=== PATIENT | female | born 1955 | race Caucasian/White ===

== ENCOUNTER 2016-09-03 10:37 | Day surgery (SDC) | payer BC ==
[~2016-09-03] VITALS: Ht 175.3 cm; Wt 119.2 kg
[~2016-09-03 10:37] MED LIST: CREON1 CAP PO; HUMALOG100 U/ML SC; LANTUS100 U/ML; LISINOPRIL10 MG PO; OMEPRAZOLE DR20 MG PO; PERCOCET 325 MG1 TA2 PO; SIMVASTATIN10 MG PO; SYNTHROID0.15 MG PO; VITAMIN D50000 I2 PO
[2016-09-03 11:09] VITALS: BP 145/78; PULSE 69; TEMP 97.8
[2016-09-03] MEDS ORDERED: INSULIN R (N100 U/ML SQ ×2 (11:22→11:23)
[2016-09-03] MEDS ORDERED: NOVLOG SQ (11:23)
[2016-09-03] MEDS ORDERED: LEVEMIR SQ ×2 (11:25→11:26)
[2016-09-03] MEDS ORDERED: SYNTHROID0.137 MG PO (11:27)
[2016-09-03] MEDS ORDERED: K-DUR20 MEQ PO (11:28)
[2016-09-03] MEDS ORDERED: ZOCOR 20MG20 MG PO (11:29)
[2016-09-03] MEDS ORDERED: CREON 60000 U-11 ECC PO (11:29)
[2016-09-03] MEDS ORDERED: VITAMIN D1000 IU PO (11:31)
[2016-09-03] MEDS ORDERED: PRINZIDE 12.5 M1 TA1 PO (11:33)
[2016-09-03 12:40] VITALS: BP 110/69; PULSE 70; TEMP 97.1
[2016-09-03 12:55] VITALS: BP 107/78; PULSE 75
[2016-09-03 13:10] VITALS: BP 115/78; PULSE 76
== END 2016-09-03 13:10 | disposition home or self-care (01) ==
LOC: SDCO 10:37
DX: Z12.11 Encounter for screening for malignant neoplasm of colon (principal); K63.5 Polyp of colon; K57.30 Diverticulosis of large intestine without perforation or abscess without bleeding; Z86.010 Personal history of colon polyps; E03.9 Hypothyroidism, unspecified; E10.9 Type 1 diabetes mellitus without complications; Z85.038 Personal history of other malignant neoplasm of large intestine; K76.0 Fatty (change of) liver, not elsewhere classified; Z79.899 Other long term (current) drug therapy
CPT/HCPCS: OP; J2250; J3010; J7030

== ENCOUNTER → 2016-09-07 | Outpatient (CLI) | payer BC ==
[~2016-09-07] MED LIST changes: +CREON 60000 U-11 ECC PO; +INSULIN R (N100 U/ML SQ; +K-DUR20 MEQ PO; +LEVEMIR SQ; +NOVLOG SQ; +PRINZIDE 12.5 M1 TA1 PO; +SYNTHROID0.137 MG PO; +VITAMIN D1000 IU PO; +ZOCOR 20MG20 MG PO
== END ==
LOC: MC.RAD 08:40
DX: Z12.31 Encounter for screening mammogram for malignant neoplasm of breast (principal)

== ENCOUNTER → 2016-10-05 | Outpatient (CLI) | payer BC | LOC: SUN.DIA 04-21 10:21 | DX: E11.65 Type 2 diabetes mellitus with hyperglycemia (principal); Z79.4 Long term (current) use of insulin; Z68.42 Body mass index [BMI] 45.0-49.9, adult; Z71.3 Dietary counseling and surveillance; E78.5 Hyperlipidemia, unspecified; I10 Essential (primary) hypertension | CPT/HCPCS: G0108 ==

== ENCOUNTER → 2016-10-05 | Outpatient (CLI) | payer BC | LOC: COL.RAD 07:14 | PROVIDERS: Internal Medicine | DX: K86.1 Other chronic pancreatitis (principal) | CPT/HCPCS: Q9967 ==

== ENCOUNTER → 2016-11-02 | Outpatient (CLI) | payer BC | LOC: SUN.DIA 08:45 | DX: E11.65 Type 2 diabetes mellitus with hyperglycemia (principal); Z79.4 Long term (current) use of insulin; E66.9 Obesity, unspecified; Z68.41 Body mass index [BMI] 40.0-44.9, adult; Z71.3 Dietary counseling and surveillance; E78.5 Hyperlipidemia, unspecified; I10 Essential (primary) hypertension | CPT/HCPCS: G0108 ==

== ENCOUNTER → 2017-04-14 | Outpatient (CLI) | payer BC ==
[~2017-04-14] MED LIST changes: +ALEVE 220MG220 MG PO; +D3-5050000 IU PO; +HUMALOG100 U/ML SQ; +NEURONTIN100 MG/CAP PO; +SYNTHROID0.125 MG/T PO
== END ==
LOC: MC.RAD 07:30
DX: N61.0 Mastitis without abscess (principal)

== ENCOUNTER → 2018-01-03 | Outpatient (CLI) | payer BC ==
[~2018-01-03] MED LIST changes: -ALEVE 220MG220 MG PO; -D3-5050000 IU PO; -HUMALOG100 U/ML SQ; -NEURONTIN100 MG/CAP PO; -SYNTHROID0.125 MG/T PO
== END ==
LOC: MC.RAD 11:32
DX: Z12.31 Encounter for screening mammogram for malignant neoplasm of breast (principal)

== ENCOUNTER → 2018-12-26 | Outpatient (CLI) | payer BC | LOC: COL.RAD 09:34 | DX: K86.1 Other chronic pancreatitis (principal); N94.89 Other specified conditions associated with female genital organs and menstrual cycle; Z90.89 Acquired absence of other organs | CPT/HCPCS: Q9967 ==

== ENCOUNTER 2019-01-26 06:22 | Day surgery (SDC) | payer BC ==
[~2019-01-26] VITALS: Ht 175.3 cm; Wt 124.5 kg
[2019-01-26 07:32] VITALS: BP 131/94; PULSE 78; TEMP 97.5
[2019-01-26] MEDS ORDERED: ALEVE 220MG220 MG PO (07:44)
[2019-01-26] MEDS ORDERED: D3-5050000 IU PO (07:46)
[2019-01-26] MEDS ORDERED: NEURONTIN100 MG/CAP PO (07:46)
[2019-01-26] MEDS ORDERED: CREON 60000 U-11 ECC PO (07:47)
[2019-01-26] MEDS ORDERED: SYNTHROID0.125 MG/T PO (07:49)
[2019-01-26] MEDS ORDERED: HUMALOG100 U/ML SQ (07:50)
[2019-01-26 08:25] VITALS: BP 130/70; PULSE 82; TEMP 97
[2019-01-26 08:40] VITALS: BP 124/66; PULSE 77
[2019-01-26 08:55] VITALS: BP 121/76; PULSE 70
[2019-01-26 09:10] VITALS: BP 134/81; PULSE 68
--- NOTE | 2019-01-26 09:18 | NUR ---
Pt returned via cart to bay 2. Ambulated to recliner in bay with x2 staff present, unsteady gait at the time. VSS-see flowsheet. Pt refused a snack, given iced water. present in room. After Dr Acharya spoke with pt and spouse, pt voiced feeling ready to go. Discharge teaching completed, verbalized understanding. IV removed with catheter tip intact, cotton ball and coban applied for pressure to removal site. Pt requested to walk instead of use a wheelchair. Ambulated with pt to private vehicle for dc home with driving.
== END 2019-01-26 09:18 | disposition home or self-care (01) ==
LOC: SDCO 06:22
DX: K21.9 Gastro-esophageal reflux disease without esophagitis (principal); K29.30 Chronic superficial gastritis without bleeding; E10.9 Type 1 diabetes mellitus without complications; Z79.4 Long term (current) use of insulin; M19.90 Unspecified osteoarthritis, unspecified site; E03.9 Hypothyroidism, unspecified; E88.89 Other specified metabolic disorders; Z86.010 Personal history of colon polyps; Z83.79 Family history of other diseases of the digestive system; K86.89 Other specified diseases of pancreas
CPT/HCPCS: J2250; J3010; J7030

== ENCOUNTER → 2019-01-31 | Outpatient (CLI) | payer BC ==
[~2019-01-31] MED LIST changes: +ALEVE 220MG220 MG PO; +D3-5050000 IU PO; +HUMALOG100 U/ML SQ; +NEURONTIN100 MG/CAP PO; +SYNTHROID0.125 MG/T PO
== END ==
LOC: COL.RAD 09:55
DX: K86.89 Other specified diseases of pancreas (principal); E11.9 Type 2 diabetes mellitus without complications
CPT/HCPCS: A9537

== ENCOUNTER → 2019-03-28 | Outpatient (CLI) | payer BC | LOC: MC.RAD 01-25 16:15 | DX: Z12.31 Encounter for screening mammogram for malignant neoplasm of breast (principal) ==

== ENCOUNTER → 2019-05-08 | Outpatient (CLI) | payer BC | LOC: COL.RAD 07:00 | DX: K59.00 Constipation, unspecified (principal); R14.3 Flatulence; R12 Heartburn; R10.13 Epigastric pain | CPT/HCPCS: A9541 ==

== ENCOUNTER → 2019-05-22 | Outpatient (CLI) | payer BC | LOC: ZCOL.LAB 17:03 | DX: K61.1 Rectal abscess (principal) ==

== ENCOUNTER → 2020-07-18 | Outpatient (CLI) | payer MEDICARE, BC | LOC: MC.RAD 12:56 | DX: Z12.31 Encounter for screening mammogram for malignant neoplasm of breast (principal); Z98.82 Breast implant status; Z78.0 Asymptomatic menopausal state ==

== ENCOUNTER 2021-03-09 17:02 | Inpatient (IN) | payer MEDICARE, BC ==
[~2021-03-09] VITALS: Ht 175.3 cm; Wt 118.2 kg
[2021-03-09 18:00] LABS: BASO # 0.1 (0.0-0.2); BASO % 0.4 % (0.0-2.0); EOS # 0.1 (0.0-0.7); EOS % 0.6 % (0-4.0); GRAN # 8.5 (1.4-6.5); GRAN % 72.3 % (42.2-75.2); HEMATOCRIT 49.6 % (37.0-47.0); HEMOGLOBIN 15.4 g/dl (12.5-16.0); LYMPH # 2.4 (1.2-3.4); LYMPH % 20.5 % (20.0-51.0); MEAN CELL VOLUME 98 fl (80.0-100.0); MEAN CORPUSCULAR HEMOGLOBIN 30 pg (27.0-31.0); MEAN CORPUSCULAR HGB CONC 31 g/dl (33.0-37.0); MEAN PLATELET VOLUME 13.1 fl (7.4-10.4); MONO # 0.6 (0.1-0.6); MONO % 5.4 % (1.7-9.3); PLATELET COUNT 234 K/mm3 (130-400); RED BLOOD COUNT 5.07 M/mm3 (4.10-5.30)
[2021-03-09 18:07] LABS: BILIRUBIN,TOTAL 0.7 mg/dL (0.0-1.0); CALCIUM 8.9 mg/dL (8.4-10.2); CREATININE, serum 1.8 (0.52-1.25); TOTAL PROTEIN 6.5 gm/dL (6.4-8.2)
[2021-03-09 20:23] LABS: INR 1.2 (0.8-3.0); PROTHROMBIN TIME 12.8 SECONDS (9.7-12.8)
[2021-03-09 20:26] LABS: PARTIAL THROMBOPLASTIN TIME 31.6 SECONDS (26.0-37.0)
[2021-03-10] VITALS (165 sets, daily range): BP systolic 75–117; BP diastolic 51–73; PULSE 73–102; TEMP 97.4–98.3; O2SAT 70–100
[2021-03-10] MEDS ORDERED: PAMELOR50 MG PO (01:24)
[2021-03-10] MEDS ORDERED: ERGOCALCIFER50000 IU PO (01:25)
[2021-03-10] MEDS ORDERED: PRILOSEC 20MG20 MG PO (01:40)
[2021-03-10] MEDS ORDERED: NEURONTIN100 MG/CAP PO (02:29)
[2021-03-10] MEDS ORDERED: ULTRAM 50MG TAB50 MG PO (02:30)
--- NOTE | 2021-03-10 02:30 | NUR ---
Admitted to medical floor from ER- DX PE, on heparin drip at 21cc/hr {2100units/hr}, alert/orientedx3, states having pain to right shoulder at 4/10, will call [facility] CHENG for pain med orders- IV fluids of NS at 100cc/hr, Right arm in sling, pt denies SOB at this time, on Airvo 60L/68%, denies chest pain. Understands to call for assistance to get up- [facility] informed of troponin of 0.216
[2021-03-10] MEDS ORDERED: NOVOLOG 100U100 U/M1 SQ (02:38)
[2021-03-10 05:27] LABS: BASO % 0.3 % (0.0-2.0); EOS % 0.1 % (0-4.0); GRAN # 8.3 (1.4-6.5); HEMATOCRIT 44.4 % (37.0-47.0); HEMOGLOBIN 13.7 g/dl (12.5-16.0); LYMPH # 2.1 (1.2-3.4); LYMPH % 18.7 % (20.0-51.0); MEAN CELL VOLUME 98 fl (80.0-100.0); MEAN CORPUSCULAR HEMOGLOBIN 30 pg (27.0-31.0); MEAN CORPUSCULAR HGB CONC 31 g/dl (33.0-37.0); MEAN PLATELET VOLUME 13.1 fl (7.4-10.4); MONO # 0.7 (0.1-0.6); MONO % 6.3 % (1.7-9.3); PLATELET COUNT 177 K/mm3 (130-400); RED BLOOD COUNT 4.54 M/mm3 (4.10-5.30)
[2021-03-10 05:37] LABS: CREATININE, serum 1.79 (0.52-1.25); POTASSIUM 4.9 mmol/L (3.4-5.0)
--- NOTE | 2021-03-10 06:00 | NUR ---
Has been sleeping well for the past 2-3hrs,, States the Tramadol did help the right shoulder aching,, Iv fluids of NS continue at 100cc/hr, hep Xa result came back at >2.0,, heparin drip off at this time--will recheck hep XA in 2 hours per protocol. VSS. continues on Airvo 60L, 68%.
[2021-03-10 06:13] LABS: TROPONIN-I 0.206 ng/mL (0.000-0.035)
--- NOTE | 2021-03-10 08:22 | NUR ---
Assessment completed, alert/oriented, vital signs stable, denies pain, reports breathing is unchanged, she gets dypnic easily with exertion, lungs CTA/ diminished bases, requiring Airvo / supplemental O2 to keep sats >90%, no resp.difficulty noted at rest and she can speak in full sentences at this time, heart RRR/distal pulses are palpable, SR on tele, right shoulder dislocation with reduction in ER/ in sling immobilizer at this time and she denies discomfort, Vascular just arrived to perform ECHO and BLE doppler, no redness or tenerness in LE, she denies needs, will continue to monitor
--- NOTE | 2021-03-10 09:14 | NUR ---
hepXa is still >1.25, hold 2 more hours and recheck level at 1030
--- NOTE | 2021-03-10 10:40 | NUR ---
Initial visit; Patient thanked [employer] for offering prayer and God's blessings. [employer] will continue to look in on [place] who seemed comforted by [employer]'s visit.
--- NOTE | 2021-03-10 10:54 | NUR ---
HepXa 0.51, will restart and drecrease by 300 units/hr from previous rate, and will now run at 18 ml/hr, nect level check @ 1700
--- NOTE | 2021-03-10 11:00 | NUR ---
SW met with the patient to discuss discharge plan. The patient lives in [place] with her , Enzo (ph#[phone]). She reports independence with ADLs and has a cane, rollator, and toliet riser. She recently had knee surgery and states that she has been going to outpatient PT at [facility] 3 times a week. She went to her appointment yesterday and they decided to hold off on therapy for now, due to her increased SOB. She then had a fall at home and landed on her right shoulder. The patient's PCP is Dr. Demetrius Chavez and [facility] She reports no difficulties obtaining her meds. The patient does not have a DPOA-HC in EMR, but she states that she does have one completed and believes that the form is at home. She states that she designated her . The patient plans to return home with her upon discharge and resume outpatient PT at [facility]. PT/OT have been ordered. The patient is currently requiring 45 liters of oxygen, via high flow cannula. SW to continue to follow. Discharge plan: Tentatively home with and outpatient PT. Awaiting theray's recs*
--- NOTE | 2021-03-10 15:37 | NUR ---
patient transferring to ICU 5, I have called and given report on patient to VASILE Schrader, transfered patient by bed, in waiting room and I notified ICU staff of this
[2021-03-10] MEDS ORDERED: NOVLOG SQ (18:31)
[2021-03-10] MEDS ORDERED: LEVEMIR FLEX100 U/ML SQ (18:31)
[2021-03-10] MEDS ORDERED: TYLENOL 325MG325 MG PO (18:31)
--- NOTE | 2021-03-10 19:15 | NUR ---
Received report from VASILE Schrader.
--- NOTE | 2021-03-10 19:45 | NUR ---
Patient resting quietly in bed. Currently finishing supper. All vitals within normal limits. She is alert and oriented; denies any pain or discomfort. She is currently receiving 6L via nasal cannula, tolerating well. NS infusing at 100mL/hr to the LAC. Heparin is currently on standby; prior dosing of 1800 units/hr. Patient assisted to commode with one-person assist. Patient full weight-bearing and steady on her feet. No further needs noted at this time.
--- NOTE | 2021-03-10 20:45 | NUR ---
EMS arrives for transport to at 2019. Patient able to ambulate to stretcher with standby assistance; tolerated well. Patient departs ICU unit at 2038.
--- NOTE | 2021-03-10 20:51 | NUR ---
Report provided to receiving nurseThao.
== END 2021-03-10 20:39 | disposition critical access hospital (66) | DRG 175 ==
LOC: COL.ER 17:02 → MEDICAL 22:15 → ICU 22:15 → COL.ER 22:15 → ICU 03-10 14:38 → MEDICAL 03-10 14:38 → ICU 03-10 20:39
PROVIDERS: Emergency Medicine; Family Medicine; Student in an Organized Health Care Education/Training Program; ADMIT Internal Medicine
DX: I26.99 Other pulmonary embolism without acute cor pulmonale (principal); J96.01 Acute respiratory failure with hypoxia; I21.A1 Myocardial infarction type 2; N17.9 Acute kidney failure, unspecified; I82.4Z2 Acute embolism and thrombosis of unspecified deep veins of left distal lower extremity; K86.1 Other chronic pancreatitis; E87.6 Hypokalemia; Z20.822 Contact with and (suspected) exposure to COVID-19; I95.9 Hypotension, unspecified; E03.9 Hypothyroidism, unspecified; Z96.652 Presence of left artificial knee joint; E11.40 Type 2 diabetes mellitus with diabetic neuropathy, unspecified; K21.9 Gastro-esophageal reflux disease without esophagitis; E86.0 Dehydration; F32.9 Major depressive disorder, single episode, unspecified; K86.89 Other specified diseases of pancreas; Z79.4 Long term (current) use of insulin; Z90.710 Acquired absence of both cervix and uterus
CPT/HCPCS: 99223-AI; J1170; J1644; J1815; J2405; J2704; J3101; J3480; J7030; Q9966

== ENCOUNTER → 2021-03-23 | Outpatient (REF) ==
[~2021-03-23] MED LIST changes: +ERGOCALCIFER50000 IU PO; +LEVEMIR FLEX100 U/ML SQ; +NOVOLOG 100U100 U/M1 SQ; +PAMELOR50 MG PO; +PRILOSEC 20MG20 MG PO; +TYLENOL 325MG325 MG PO; +ULTRAM 50MG TAB50 MG PO
== END ==
LOC: ZLAB.STJ 12:38
DX: E11.42 Type 2 diabetes mellitus with diabetic polyneuropathy (principal)

== ENCOUNTER → 2021-04-03 | Outpatient (CLI) | payer MEDICARE, BC ==
[2021-04-03 15:25] LABS: CALCIUM 8.2 mg/dL (8.4-10.2); CREATININE, serum 0.99 (0.52-1.25)
[2021-04-03 15:26] LABS: POTASSIUM 2.9 mmol/L (3.4-5.0)
[2021-04-03 15:27] LABS: THYROID STIMULATING HORMONE 4.508 uIU/mL (0.465-4.680)
== END ==
LOC: ZLAB.STJ 13:38
PROVIDERS: Orthopaedic Surgery
DX: E03.9 Hypothyroidism, unspecified (principal); I26.99 Other pulmonary embolism without acute cor pulmonale

== ENCOUNTER → 2021-04-06 | Outpatient (CLI) | payer MEDICARE, BC ==
[2021-04-06 17:23] LABS: CALCIUM 8.3 mg/dL (8.4-10.2); CREATININE, serum 0.93 (0.52-1.25); POTASSIUM 3.3 mmol/L (3.4-5.0)
== END ==
LOC: ZLAB.STJ 15:46
PROVIDERS: Internal Medicine
DX: I26.99 Other pulmonary embolism without acute cor pulmonale (principal)

== ENCOUNTER → 2021-04-15 | Outpatient (CLI) | payer MEDICARE, BC | LOC: COL.VAS 13:24 | DX: I34.0 Nonrheumatic mitral (valve) insufficiency (principal); I51.7 Cardiomegaly ==

== ENCOUNTER → 2021-04-23 | Outpatient (CLI) | payer MEDICARE, BC | LOC: COL.VAS 11:57 | DX: I51.89 Other ill-defined heart diseases (principal); M79.89 Other specified soft tissue disorders ==

== ENCOUNTER → 2021-06-09 | Outpatient (CLI) | payer MEDICARE, BC | LOC: COL.RAD 05-29 10:30 | DX: J98.11 Atelectasis (principal) | CPT/HCPCS: Q9967 ==

== ENCOUNTER 2021-07-20 09:00 | Outpatient (RCR) | payer MEDICARE, BC | END 2021-07-21 | disposition home or self-care (01) | LOC: WSOT | DX: M75.101 Unspecified rotator cuff tear or rupture of right shoulder, not specified as traumatic (principal); M62.81 Muscle weakness (generalized); R26.81 Unsteadiness on feet; Z96.652 Presence of left artificial knee joint ==

== ENCOUNTER 2021-08-06 09:00 | Outpatient (RCR) | payer MEDICARE, BC | END 2021-08-07 | disposition home or self-care (01) | LOC: WSOT | DX: I26.99 Other pulmonary embolism without acute cor pulmonale (principal); M75.101 Unspecified rotator cuff tear or rupture of right shoulder, not specified as traumatic; Z96.652 Presence of left artificial knee joint ==

== ENCOUNTER 2021-10-01 09:00 | Outpatient (RCR) | payer MEDICARE, BC | END 2021-10-05 | disposition home or self-care (01) | LOC: WSOT | DX: M75.121 Complete rotator cuff tear or rupture of right shoulder, not specified as traumatic (principal); I26.99 Other pulmonary embolism without acute cor pulmonale; Z96.652 Presence of left artificial knee joint; S43.004D Unspecified dislocation of right shoulder joint, subsequent encounter; X58.XXXD Exposure to other specified factors, subsequent encounter ==

== ENCOUNTER 2021-12-03 09:30 | Outpatient (RCR) | payer MEDICARE, BC | END 2021-12-05 | disposition home or self-care (01) | LOC: WSOT | DX: S43.081D Other subluxation of right shoulder joint, subsequent encounter (principal); G54.0 Brachial plexus disorders; M62.511 Muscle wasting and atrophy, not elsewhere classified, right shoulder; M75.101 Unspecified rotator cuff tear or rupture of right shoulder, not specified as traumatic; Z96.651 Presence of right artificial knee joint; X58.XXXD Exposure to other specified factors, subsequent encounter ==

== ENCOUNTER → 2022-01-05 | Outpatient (RCR) | payer MEDICARE, BC | END | disposition home or self-care (01) | LOC: WSOT → PT.GENESIS 12-10 09:15 → WSOT 12-17 10:30 → PT.GENESIS 12-22 10:15 → WSOT 12-24 10:30 → PT.GENESIS 12-31 09:15 → WSOT 09:00 | DX: S43.084D Other dislocation of right shoulder joint, subsequent encounter (principal); M75.101 Unspecified rotator cuff tear or rupture of right shoulder, not specified as traumatic; I26.99 Other pulmonary embolism without acute cor pulmonale; Z96.652 Presence of left artificial knee joint; X58.XXXD Exposure to other specified factors, subsequent encounter ==

== ENCOUNTER → 2022-01-12 | Outpatient (CLI) | payer MEDICARE, BC | LOC: MC.RAD 14:00 | DX: Z12.31 Encounter for screening mammogram for malignant neoplasm of breast (principal) ==

== ENCOUNTER → 2022-02-04 | Outpatient (RCR) | payer MEDICARE, BC | END | disposition home or self-care (01) | LOC: PT.GENESIS → WSOT 01-07 08:52 → PT.GENESIS 01-07 08:52 → WSOT 01-07 09:00 → PT.GENESIS 01-14 09:15 → WSOT 01-28 10:30 → PT.GENESIS 02-02 11:00 | DX: J90 Pleural effusion, not elsewhere classified (principal); S43.004A Unspecified dislocation of right shoulder joint, initial encounter; M75.101 Unspecified rotator cuff tear or rupture of right shoulder, not specified as traumatic; Z96.642 Presence of left artificial hip joint ==

== ENCOUNTER 2022-03-04 09:00 | Outpatient (RCR) | payer MEDICARE, BC | END 2022-03-07 | disposition home or self-care (01) | LOC: PT.GENESIS | DX: S43.004D Unspecified dislocation of right shoulder joint, subsequent encounter (principal); M75.101 Unspecified rotator cuff tear or rupture of right shoulder, not specified as traumatic; M62.511 Muscle wasting and atrophy, not elsewhere classified, right shoulder; G54.0 Brachial plexus disorders; Z96.642 Presence of left artificial hip joint; Z96.652 Presence of left artificial knee joint; X58.XXXD Exposure to other specified factors, subsequent encounter ==

== ENCOUNTER → 2022-04-01 | Outpatient (CLI) | payer MEDICARE, BC ==
[2022-04-01 15:12] LABS: BASO # 0.1 K/mm3 (0.0-0.2); BASO % 0.9 % (0.0-2.0); EOS # 0.2 K/mm3 (0.0-0.7); EOS % 2.8 % (0.0-4.0); GRAN # 3.4 K/mm3 (1.4-6.5); GRAN % 63.8 % (42.2-75.2); HEMATOCRIT 43.3 % (37.0-47.0); HEMOGLOBIN 13.5 g/dl (12.5-16.0); LYMPH # 1.4 K/mm3 (1.2-3.4); LYMPH % 26.1 % (20.0-51.0); MEAN CELL VOLUME 93 fl (80.0-100.0); MEAN CORPUSCULAR HEMOGLOBIN 29 pg (27-31); MEAN CORPUSCULAR HGB CONC 31 g/dl (33.0-37.0); MEAN PLATELET VOLUME 11.9 fl (7.4-10.4); MONO # 0.3 K/mm3 (0.1-0.6); MONO % 6.2 % (1.7-9.3); PLATELET COUNT 219 K/mm3 (130-400); RED BLOOD COUNT 4.67 M/mm3 (4.10-5.30); REDCELL DISTRIBUTION WIDTH-CV 14.6 % (11.5-14.5)
[2022-04-01 15:30] LABS: ALANINE AMINOTRANSFERASE 12 U/L (0-55); ALBUMIN 2.7 gm/dL (3.4-4.8); ALKALINE PHOSPHATASE 130 U/L (40-150); ANION GAP 8 mmol/L (7-16); AST,SGOT 21 U/L (5-34); BILIRUBIN,TOTAL 0.7 mg/dL (0.2-1.2); BLOOD UREA NITROGEN 13 mg/dL (10-20); C-REACTIVE PROTEIN 0.29 mg/dL (0.00-0.50); CARBON DIOXIDE 28 mmol/L (23-31); CHLORIDE 106 mmol/L (98-107); CREATININE, serum 1.01 mg/dL (0.57-1.11); GLUCOSE 222 mg/dL (70-99); POTASSIUM 3.4 mmol/L (3.5-4.5); SODIUM 142 mmol/L (136-145); TOTAL PROTEIN 6.4 gm/dL (6.2-8.1)
[2022-04-01 15:38] LABS: ERYTHROCYTE SEDIMENTATION RATE 12 mm/hr (0-30)
[2022-04-01 15:49] LABS: THYROID STIMULATING HORMONE 6.032 uIU/mL (0.350-4.940)
[2022-04-01 15:55] LABS: TROPONIN-I < 0.010 ng/mL (0.00-0.033)
== END ==
LOC: COL.LAB 14:41 → COL.RAD 15:00 → COL.LAB 15:00
PROVIDERS: Internal Medicine
DX: R07.89 Other chest pain (principal); I26.99 Other pulmonary embolism without acute cor pulmonale
CPT/HCPCS: Q9967

== ENCOUNTER 2022-04-06 11:00 | Outpatient (RCR) | payer MEDICARE, BC | END 2022-04-07 | disposition home or self-care (01) | LOC: PT.GENESIS | DX: S43.081D Other subluxation of right shoulder joint, subsequent encounter (principal); G54.0 Brachial plexus disorders; M62.511 Muscle wasting and atrophy, not elsewhere classified, right shoulder ==

== ENCOUNTER 2022-06-03 11:15 | Outpatient (RCR) | payer MEDICARE, BC | END 2022-06-07 | disposition home or self-care (01) | LOC: PT.GENESIS | DX: S43.081D Other subluxation of right shoulder joint, subsequent encounter (principal); G54.0 Brachial plexus disorders; M62.511 Muscle wasting and atrophy, not elsewhere classified, right shoulder; X58.XXXD Exposure to other specified factors, subsequent encounter ==

== ENCOUNTER 2022-12-02 09:45 | Outpatient (RCR) | payer MEDICARE, BC | END 2022-12-05 | disposition home or self-care (01) | LOC: PT.GENESIS | DX: S43.081D Other subluxation of right shoulder joint, subsequent encounter (principal); G54.0 Brachial plexus disorders; M62.511 Muscle wasting and atrophy, not elsewhere classified, right shoulder; I26.99 Other pulmonary embolism without acute cor pulmonale; M75.101 Unspecified rotator cuff tear or rupture of right shoulder, not specified as traumatic; S43.004D Unspecified dislocation of right shoulder joint, subsequent encounter; Z96.652 Presence of left artificial knee joint; X58.XXXD Exposure to other specified factors, subsequent encounter ==

== ENCOUNTER → 2023-04-19 | Outpatient (CLI) | payer MEDICARE, BC | LOC: MC.RAD 09:44 | DX: Z12.31 Encounter for screening mammogram for malignant neoplasm of breast (principal) ==

== ENCOUNTER 2023-05-05 09:45 | Outpatient (RCR) | payer MEDICARE, BC | END 2023-05-07 | disposition home or self-care (01) | LOC: PT.GENESIS | DX: I26.99 Other pulmonary embolism without acute cor pulmonale (principal); S43.004A Unspecified dislocation of right shoulder joint, initial encounter; M75.101 Unspecified rotator cuff tear or rupture of right shoulder, not specified as traumatic; S43.081D Other subluxation of right shoulder joint, subsequent encounter; M62.511 Muscle wasting and atrophy, not elsewhere classified, right shoulder; G54.0 Brachial plexus disorders; Z96.652 Presence of left artificial knee joint ==

== ENCOUNTER 2023-05-05 11:00 | Outpatient (RCR) | payer MEDICARE, BC | END 2023-05-07 | disposition home or self-care (01) | LOC: WSOT | DX: M65.342 Trigger finger, left ring finger (principal) ==

== ENCOUNTER 2023-06-14 12:42 | Outpatient (RCR) | payer MEDICARE, BC | END 2023-06-14 15:00 | disposition home or self-care (01) | LOC: WSOT 12:42 | DX: M65.342 Trigger finger, left ring finger (principal); S43.004D Unspecified dislocation of right shoulder joint, subsequent encounter; M75.101 Unspecified rotator cuff tear or rupture of right shoulder, not specified as traumatic; Z96.652 Presence of left artificial knee joint ==

== ENCOUNTER → 2023-07-07 | Outpatient (RCR) | payer MEDICARE, BC | END | disposition home or self-care (01) | LOC: PT.GENESIS | DX: S43.004D Unspecified dislocation of right shoulder joint, subsequent encounter (principal); M75.101 Unspecified rotator cuff tear or rupture of right shoulder, not specified as traumatic; J90 Pleural effusion, not elsewhere classified; S43.081D Other subluxation of right shoulder joint, subsequent encounter; M62.511 Muscle wasting and atrophy, not elsewhere classified, right shoulder; G54.0 Brachial plexus disorders ==

== ENCOUNTER 2023-07-28 09:45 | Outpatient (RCR) | payer MEDICARE, BC | END 2023-08-07 | disposition home or self-care (01) | LOC: PT.GENESIS | DX: S43.081D Other subluxation of right shoulder joint, subsequent encounter (principal); M75.101 Unspecified rotator cuff tear or rupture of right shoulder, not specified as traumatic; G54.0 Brachial plexus disorders; M62.511 Muscle wasting and atrophy, not elsewhere classified, right shoulder; Z96.652 Presence of left artificial knee joint; X58.XXXD Exposure to other specified factors, subsequent encounter ==

== ENCOUNTER 2023-09-01 09:45 | Outpatient (RCR) | payer MEDICARE, BC | END 2023-09-07 | disposition still patient (30) | LOC: PT.GENESIS | DX: S43.004D Unspecified dislocation of right shoulder joint, subsequent encounter (principal); M75.101 Unspecified rotator cuff tear or rupture of right shoulder, not specified as traumatic; J90 Pleural effusion, not elsewhere classified; Z96.652 Presence of left artificial knee joint; X58.XXXD Exposure to other specified factors, subsequent encounter ==

== ENCOUNTER → 2023-10-06 | Outpatient (RCR) | payer MEDICARE, BC | END | disposition home or self-care (01) | LOC: PT.GENESIS | DX: S43.004D Unspecified dislocation of right shoulder joint, subsequent encounter (principal); S43.081D Other subluxation of right shoulder joint, subsequent encounter; M75.101 Unspecified rotator cuff tear or rupture of right shoulder, not specified as traumatic; Z96.651 Presence of right artificial knee joint; G54.0 Brachial plexus disorders; M62.511 Muscle wasting and atrophy, not elsewhere classified, right shoulder; X58.XXXD Exposure to other specified factors, subsequent encounter ==

== ENCOUNTER 2024-02-02 09:45 | Outpatient (RCR) | payer MEDICARE, BC | END 2024-02-05 | LOC: PT.GENESIS | DX: S43.004D Unspecified dislocation of right shoulder joint, subsequent encounter (principal); S46.001D Unspecified injury of muscle(s) and tendon(s) of the rotator cuff of right shoulder, subsequent encounter; X58.XXXD Exposure to other specified factors, subsequent encounter; Z96.651 Presence of right artificial knee joint ==

== ENCOUNTER 2024-03-06 13:45 | Outpatient (RCR) | payer MEDICARE, BC | END 2024-03-07 | disposition home or self-care (01) | LOC: PT.GENESIS | DX: S43.004D Unspecified dislocation of right shoulder joint, subsequent encounter (principal); I26.99 Other pulmonary embolism without acute cor pulmonale; Z96.652 Presence of left artificial knee joint; X58.XXXD Exposure to other specified factors, subsequent encounter ==

== ENCOUNTER → 2024-04-23 | Outpatient (CLI) | payer MEDICARE, BC | LOC: MC.RAD 08:11 | DX: Z12.31 Encounter for screening mammogram for malignant neoplasm of breast (principal) ==

== ENCOUNTER 2024-07-03 13:45 | Outpatient (RCR) | payer MEDICARE, BC | END 2024-07-07 | disposition home or self-care (01) | LOC: PT.GENESIS | DX: S46.001D Unspecified injury of muscle(s) and tendon(s) of the rotator cuff of right shoulder, subsequent encounter (principal); S43.004D Unspecified dislocation of right shoulder joint, subsequent encounter; Z96.652 Presence of left artificial knee joint ==